=== PATIENT | female | born 1995 | race African-American/Black ===

== ENCOUNTER 2016-10-26 18:52 | Emergency (ER) | payer MEDICAID ==
[~2016-10-26] VITALS: Ht 162.6 cm; Wt 55.8 kg
[~2016-10-26 18:52] MED LIST: DIPH25TA26 PO; IBUP800T24 PO; NOR10T PO; TRAM50TA2 PO
[2016-10-26 19:18] LABS: Urine RBC None Seen /hpf (0 - 4)
[2016-10-26 19:23] VITALS: BP 112/70
[2016-10-26 19:31] LABS: Urine Bilirubin Negative (Negative); Urine Blood Negative /uL (Negative); Urine Color Colorless (Yellow); Urine Glucose Normal (Normal); Urine Ketone Negative (Negative); Urine Nitrite Negative (Negative); Urine Squamous Epithelial Cell FEW /hpf (<5); Urine Urobilinogen Normal (Negative)
[2016-10-26] MEDS ORDERED: cefTRIAXone SOD 1,000 MG VL IM ONE (19:45)
[2016-10-26] MEDS ORDERED: KETOROLAC TROMETH 60MG/2ML VIAL IM ONE (19:45)
== END 2016-10-26 20:01 | disposition home or self-care (01) ==
LOC: ER 19:05
DX: J02.9 Acute pharyngitis, unspecified (principal); F17.210 Nicotine dependence, cigarettes, uncomplicated; Z79.899 Other long term (current) drug therapy; Z87.442 Personal history of urinary calculi
CPT/HCPCS: 81001; 81025; 96372; 99284; J0696; J1885

== ENCOUNTER 2017-11-29 15:29 | Emergency (ER) | payer MEDICAID ==
[~2017-11-29] VITALS: Ht 162.6 cm; Wt 56.7 kg
[2017-11-29] MEDS ORDERED: LIDOCAINE 1% HCL (LOCAL ANESTH.) INJ 20ML MDV ID ONE (16:00)
[2017-11-29] MEDS ORDERED: HYDROcodone-ACET 10/325MG TAB PO ONE (16:00)
[2017-11-29] MEDS ORDERED: BACITRACIN TOP OINT 1 UD PKG TOP ONE (16:00)
[2017-11-29] MEDS ORDERED: IOHEXOL 300 MG/ML 100ML BOTTLE IJ ONE (16:08)
[2017-11-29 16:58] VITALS: BP 117/85
[2017-11-29] MEDS ORDERED: KETOROLAC TROMETH 30 MG/ML 1ML VIAL IV ONE (17:30)
== END 2017-11-29 17:57 | disposition home or self-care (01) ==
LOC: ER 15:29 → EDBD 15:29 → ER 17:57
DX: S01.81XA Laceration without foreign body of other part of head, initial encounter (principal); F17.210 Nicotine dependence, cigarettes, uncomplicated; F12.10 Cannabis abuse, uncomplicated; Z88.5 Allergy status to narcotic agent; Z79.1 Long term (current) use of non-steroidal anti-inflammatories (NSAID); Z79.891 Long term (current) use of opiate analgesic; Z79.899 Other long term (current) drug therapy; V43.52XA Car driver injured in collision with other type car in traffic accident, initial encounter; Y92.410 Unspecified street and highway as the place of occurrence of the external cause; Y93.89 Activity, other specified; Y99.8 Other external cause status
CPT/HCPCS: 12013; 70450; 72125; 74177; 96374; 99284; J1885; J7030; Q9967

== ENCOUNTER 2018-01-24 13:21 | Emergency (ER) | payer MEDICAID ==
[~2018-01-24] VITALS: Ht 162.6 cm; Wt 56.2 kg
[2018-01-24 14:00] LABS: Basophils # (auto) 0 uL; Basophils % (auto) 0.5 % (0.0-2.0); Eosinophils # (auto) 0 uL; Eosinophils % (auto) 0.4 % (0.0-7.0); Hemoglobin 12.5 g/dL (12.2-16.2); Lymphocytes # (auto) 1.4 uL; Lymphocytes % (auto) 28.7 % (10.0-50.0); Mean Corpuscular Hemoglobin 32.9 pg (28.0-32.0); Mean Corpuscular Hgb Conc. 33.9 g/dL (32.0-36.0); Mean Corpuscular Volume 97.1 fL (80.0-100.0); Monocytes # (auto) 0.4 uL; Monocytes % (auto) 7.3 % (0.0-12.0); Neutrophils # (auto) 3.1 uL; Neutrophils % (auto) 63.1 % (37.0-80.0); Nucleated Red Blood Cells % 0.1 %; Platelet Count (auto) 255 10^3/uL (140-450); Red Blood Cells 3.81 10^6/uL (4.0-5.20); Red Cell Distribution Width 14.1 % (11.8-14.3); White Blood Cell 4.9 10^3/uL (4.4-10.8)
[2018-01-24 14:18] LABS: Albumin 3.6 g/dL (3.4-5.0); BUN/Creatinine Ratio 8.4; Calcium 8.6 mg/dL (8.5-10.1); Potassium 3.9 mmol/L (3.5-5.1)
[2018-01-24 14:19] LABS: Urine Bacteria FEW /hpf (None Seen); Urine Blood Negative /uL (Negative); Urine Mucus FEW (None Seen); Urine Specific Gravity 1.024 (1.001-1.035); Urine WBC 3 /hpf (0 - 5)
[2018-01-24 14:20] LABS: Bilirubin, Total 0.5 mg/dL (0.2-1.0); Total Protein 6.9 g/dL (6.4-8.2)
[2018-01-24] MEDS ORDERED: cloNIDine HCL 0.1 MG TAB PO ONE (17:45)
[2018-01-24 18:10] VITALS: BP 114/81
== END 2018-01-24 18:54 | disposition left against medical advice (07) ==
LOC: ER 13:21
DX: R10.84 Generalized abdominal pain (principal); F17.210 Nicotine dependence, cigarettes, uncomplicated; Z87.442 Personal history of urinary calculi
CPT/HCPCS: 36415; 80053; 81001; 81025; 82150; 83690; 85025

== ENCOUNTER 2020-03-03 12:15 | Emergency (ER) | payer MEDICAID ==
[~2020-03-03] VITALS: Ht 162.6 cm; Wt 54.4 kg
[2020-03-03 15:25] LABS: Urine Amorphous Crystal FEW /hpf (None Seen); Urine Bacteria NONE SEEN /hpf (None Seen); Urine Blood Negative /uL (Negative); Urine Mucus FEW (None Seen); Urine WBC 1 /hpf (0 - 5)
[2020-03-03] MEDS ORDERED: KETOROLAC TROMETH 60MG/2ML VIAL IM ONE (16:30)
[2020-03-03 18:00] VITALS: BP 120/74
== END 2020-03-03 18:10 | disposition home or self-care (01) ==
LOC: ER 12:15
DX: N83.202 Unspecified ovarian cyst, left side (principal); M25.572 Pain in left ankle and joints of left foot; F17.210 Nicotine dependence, cigarettes, uncomplicated; Z88.8 Allergy status to other drugs, medicaments and biological substances
CPT/HCPCS: 73610; 76830; 76856; 81001; 81025; 96372; 99285; J1885

== ENCOUNTER 2024-03-12 02:41 | Emergency (ER) | payer MEDICAID ==
[~2024-03-12] VITALS: Ht 162.6 cm; Wt 52.7 kg
[~2024-03-12 02:41] MED LIST changes: +IBUP-1456 PO; -IBUP800T24 PO
[2024-03-12 05:18] LABS: Basophils # (auto) 0 10 ^3/uL (0-0.2); Basophils % (auto) 0.4 % (0.0-2.0); Eosinophils # (auto) 0 10 ^3/uL (0-0.8); Eosinophils % (auto) 0.8 % (0.0-7.0); Hematocrit 37.6 % (36.0-46.0); Hemoglobin 12.7 g/dL (12.2-16.2); Lymphocytes # (auto) 1.9 10 ^3/uL (0.4-5.4); Lymphocytes % (auto) 41.3 % (10.0-50.0); Mean Corpuscular Hemoglobin 32.8 pg (28.0-32.0); Mean Corpuscular Hgb Conc. 33.6 g/dL (32.0-36.0); Mean Corpuscular Volume 97.5 fL (80.0-100.0); Monocytes # (auto) 0.4 10 ^3/uL (0-1.3); Monocytes % (auto) 8.1 % (0.0-12.0); Neutrophils # (auto) 2.2 10 ^3/uL (1.6-8.6); Neutrophils % (auto) 49.4 % (37.0-80.0); Red Blood Cells 3.86 10^6/uL (4.0-5.20); Red Cell Distribution Width 13.5 % (11.8-14.3); White Blood Cell 4.5 10^3/uL (4.4-10.8)
[2024-03-12 05:32] LABS: Alanine Aminotransferase 13 U/L (7-40); Albumin 4.2 g/dL (3.2-4.8); Alkaline Phosphatase 61 U/L (46-116); Anion Gap 3 (5-15); Aspartate Aminotransferase 18 U/L (13-40); BUN/Creatinine Ratio 11.3 (10.0-20.0); Blood Urea Nitrogen 9 mg/dL (9-23); Calcium 9.2 mg/dL (8.7-10.4); Carbon Dioxide 25 mmol/L (20-30); Chloride 109 mmol/L (98-107); Glucose 96 mg/dL (74-106); Potassium 3.4 mmol/L (3.5-5.1); Sodium 137 mmol/L (136-145)
[2024-03-12 05:33] LABS: Bilirubin, Total 0.7 mg/dL (0.2-1.0); Total Protein 6.3 g/dL (5.7-8.2)
[2024-03-12] MEDS ORDERED: NAPR125S6 PO (05:50)
[2024-03-12] MEDS ORDERED: PANT40TA2 PO (05:50)
[2024-03-12] MEDS: KETOROLAC TROMETH 60MG/2ML VIAL IM ONE (06:20)
[2024-03-12 06:23] VITALS: BP 115/65; PULSE 84; RESP 16; TEMP 98.2; O2SAT 99
== END 2024-03-12 06:22 | disposition home or self-care (01) ==
LOC: ER 02:41
DX: R68.89 Other general symptoms and signs (principal); F41.9 Anxiety disorder, unspecified; F17.210 Nicotine dependence, cigarettes, uncomplicated; F15.90 Other stimulant use, unspecified, uncomplicated; Z86.2 Personal history of diseases of the blood and blood-forming organs and certain disorders involving the immune mechanism; Z87.442 Personal history of urinary calculi; Z98.890 Other specified postprocedural states; Z88.8 Allergy status to other drugs, medicaments and biological substances; Z79.899 Other long term (current) drug therapy
CPT/HCPCS: 36415; 74176; 80053; 83690; 85025; 96372; 99285; J1885

== ENCOUNTER 2025-04-04 21:57 | Emergency (ER) | payer MEDICAID ==
[~2025-04-04] VITALS: Ht 162.6 cm; Wt 56.9 kg
[~2025-04-04 21:57] MED LIST changes: +NAPR125S6 PO; +PANT40TA2 PO
[2025-04-04 22:26] LABS: Hematocrit 36.0 % (36.0-46.0); Hemoglobin 12.2 g/dL (12.2-16.2); Mean Corpuscular Hemoglobin 33.3 pg (28.0-32.0); Mean Corpuscular Volume 98.2 fL (80.0-100.0); Nucleated Red Blood Cells % 0.1 %
--- NOTE | 2025-04-04 22:26 | ED.PDOC ---
HPI Comments 30y F who presents to the ED for chief complaint of chest pain. Pt states she has been having chest pain for the past 3x days. Pt states the pain is substernal, radiating to the L ribs, constant, pressure and sharp in nature, with associated exacerbation of pain with any movement and no relieving factors. Pt in the ED, has associated shortness of breath but otherwise denies any other symptoms. Pt otherwise denies any other symptoms at this time. Pt denies any past cardiac history or family history. Chief Complaint: Chest Pain Time Seen by MD: 22:17 Primary Care Provider: DR COLLAZO Reviewed Notes: Nurses Notes, Medications, Allergies Allergies: Coded Allergies: Tramadol (Verified Allergy, Unknown, 11/29/17) Home Meds Active Scripts Naproxen (Naprosyn) 125 Mg/5 Ml Sabrina, 500 MG PO BID for 10 Days, #20 ML Prov:SEBASTIEN NGUYEN MD 03/12/24 Pantoprazole Sodium Sesquihydr (Protonix) 40 Mg Tab, 40 MG PO DAILY PRN for 30 Days, #30 TAB Prov:SEBASTIEN NGUYEN MD 03/12/24 Reported Medications Diphenhydramine Hcl (Benadryl) 25 Mg Tab, 50 MG PO PRN, TAB 01/28/14 Ibuprofen (Ibuprofen) 800 Mg Tab, 800 MG PO Q8HP PRN for SEVERE PAIN, TAB 01/28/14 Tramadol Hcl (Tramadol Hcl) 50 Mg Tab, 50 MG PO PRN, TAB 01/28/14 Hydrocodone-Acetaminophen ([place] 10/325MG) 1 Tab Tb, 1 TAB PO PRN 01/28/14 Information Source: Patient Mode of Arrival: Ambulatory Severity: Moderate Timing: Days Duration: Since onset Prehospital treatment: None Location: Chest (L), Substernal Radiation: No Radiation Quality: Sharp, Squeezing Onset: At Rest Cardiac Risk Factors: None PE Risk Factors: None History of: None Past Medical History PAST MEDICAL HISTORY: Anemia, Anxiety, Kidney Stones 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 History Family History Family History: No family hx of Heart jac, No family hx of HTN, No family hx ofKidney jac Social History Smoker: Cigarettes, Less Than 1 Pack/Day Alcohol: Denies ETOH Use Drugs: Marijuana Lives In: Home Constitutional: denies: chills, diaphoresis, fatigue, fever, malaise, sweats, weakness, others EENTM: denies: blurred vision, double vision, ear bleeding, ear discharge, ear drainage, ear pain, ear ringing, eye pain, eye redness, hearing loss, mouth pain, mouth swelling, nasal discharge, nose bleeding, nose congestion, nose pain, photophobia, tearing, throat pain, throat swelling, voice changes, others Respiratory: reports: shortness of breath; denies: cough, hemoptysis, orthopnea, SOB at rest, SOB with excertion, stridor, wheezing, others Cardiovascular: reports: chest pain; denies: dizzy spells, diaphoresis, Dyspnea on exertion, edema, irregular heart beat, left arm pain, lightheadedness, palpitations, PND, syncope, others Gastrointestinal: denies: abdomen distended, abdominal pain, blood streaked bowels, constipated, diarrhea, dysphagia, difficulty swallowing, hematemesis, melena, nausea, poor appetite, poor fluid intake, rectal bleeding, rectal pain, vomiting, others Genitourinary: denies: abnormal vagina bleeding, burning, dyspareunia, dysuria, flank pain, frequency, hematuria, incontinence, pain, , vagina discharge, urgency, others Neurological: denies: dizziness, fainting, headache, left sided numbness, left sided weakness, numbness, paresthesia, pre-existing deficit, right sided numbness, right sided weakness, seizure, speech problems, tingling, tremors, weakness, others Musculoskeletal: denies: back pain, gout, joint pain, joint swelling, muscle pain, muscle stiffness, neck pain, others Integumetry: denies: bruises, change in color, change in hair/nails, dryness, laceration, lesions, lumps, rash, wounds, others Allergic/Immunocompromised: denies: Difficulty Healing, Frequent Infections, Hives, Itching, others Hematologic/Lymphatic: denies: anemia, blood clots, easy bleeding, easy bruising, swollen glands, others Endocrine: denies: excessive hunger, excessive sweating, excessive thirst, excessive urination, flushing, intolerance to cold, intolerance to heat, unexplained weight gain, unexplained weight loss, others Psychiatric: denies: anxiety, bipolar disorder, depression, hopeless, panic disorder, schizophrenia, sleepless, suicidal, others All Other Systems: Reviewed and Negative Physical Exam General Appearance: Moderate Distress ([id number] distress due to chest pain concerns.), Normal HEENT: Normal ENT Inspection, Pharynx Normal, TMs Normal Neck: Full Range of Motion, Non-Tender, Normal, Normal Inspection Respiratory: Chest Non-Tender, Lungs Clear, No Accessory Muscle Use, No Respiratory Distress, Normal Breath Sounds, Other (Unremarkable auscultation bilateral lung albarran.) Cardiovascular: No Edema, No JVD, No Murmur, No Gallop, Normal Peripheral Pulses, Regular Rate/Rhythm, Other (Unremarkable cardiac evaluation.) Breast Exam: Deferred Gastrointestinal: No Organomegaly, Non Tender, No Pulsatile Mass, Normal Bowel Sounds, Soft Genitalia: Deferred Pelvic: Deferred Rectal: Deferred Extremities: No calf tenderness, Normal capillary refill, Normal inspection, Normal range of motion, Non-tender, No pedal edema Musculoskeletal : Apperance: Normal Neurologic: Alert, No Motor Deficits, Normal Affect, Normal Mood, No Sensory Deficits Cerebellar Function: Normal Reflexes: Normal Skin: Dry, Normal Color, Warm Lymphatic: No Adenopathy Was a procedure done? Was a procedure done?: No CP Differential Dx Differential Diagnosis: A-fib, A-Flutter, Angina, Anxiety / Panic Attack Differential Diagnosis: Angina, Aortic dissection, Pneumonia X-Ray, Labs, Meds, VS Vital Signs Date Time Temp Pulse Resp B/P (MAP) Pulse Ox O2 Delivery O2 Flow Rate FiO2 04/04/25 22:32 98.0 89 18 114/82 (93) 100 98.0 04/04/25 22:04 80 Lab Test 04/04/25 23:50 04/04/25 23:48 04/04/25 22:02 Range/Units Urine Color Light-yellow Yellow Urine Clarity Clear Clear Urine pH 7.5 5.0-9.0 Urine Specific [place] 1.018 1.001-1.035 Urine Protein Negative Negative Urine Ketones Negative Negative Urine Blood 3+ H Negative /uL Urine Nitrite Negative Negative Urine Bilirubin Negative Negative Urine Urobilinogen Normal Negative mg/dL Urine Leukocyte Esterase Negative Negative /uL Urine RBC 1 0 - 4 /hpf Urine Microscopic WBC 1 0-5 /HPF Urine Squamous Epithelial Cells Few <5 /hpf Urine Bacteria None seen None Seen /hpf Urine Glucose Normal Normal mg/dL Troponin I High Sensitivity < 3 L < 3 L </=34 ng/L White Blood Count 4.5 4.4-10.8 10^3/uL Red Blood Count 3.67 L 4.0-5.20 10^6/uL Hemoglobin 12.2 12.2-16.2 g/dL Hematocrit 36.0 36.0-46.0 % Mean Corpuscular Volume 98.2 80.0-100.0 fL Mean Corpuscular Hemoglobin 33.3 H 28.0-32.0 pg Mean Corpuscular Hemoglobin Concent 33.9 32.0-36.0 g/dL Red Cell Distribution Width 13.2 11.8-14.3 % Platelet Count 300 140-450 10^3/uL Mean Platelet Volume 8.1 6.9-10.8 fL Neutrophils (%) (Auto) 46.1 37.0-80.0 % Lymphocytes (%) (Auto) 46.0 10.0-50.0 % Monocytes (%) (Auto) 6.4 0.0-12.0 % Eosinophils (%) (Auto) 0.8 0.0-7.0 % Basophils (%) (Auto) 0.7 0.0-2.0 % Neutrophils # (Auto) 2.1 1.6-8.6 10 ^3/uL Lymphocytes # (Auto) 2.1 0.4-5.4 10 ^3/uL Monocytes # (Auto) 0.3 0-1.3 10 ^3/uL Eosinophils # (Auto) 0 0-0.8 10 ^3/uL Basophils # (Auto) 0 0-0.2 10 ^3/uL Nucleated Red Blood Cells 0.1 % D-Dimer, Quantitative 0.49 0.0-0.49 mg/L FEU B-Type Natriuretic Peptide 46.68 0-100 pg/mL X-Ray, Labs, Meds, VS Comment All studies performed the ED were evaluated by me personally. Serum and urinalysis was unremarkable for any acute systemic concerns including unremarkable cardiac markers. EKG revealed a sinus rhythm with a rate of 80. Ventricular premature complex was noted. [place] interval of 150 and QT interval 405. Relatively unremarkable EKG. Chest x-ray was unremarkable for any consolidation or intrapulmonary concerns. Unknown as to cause the patient's chest pain events. Advised patient to follow up with the primary care provider if symptoms continue for continued evaluation as possible cardiac referral. Time of 1ST Reevaluation: Reevaluation 1ST: Improved Consultation: PCP, Cardiology Patient Education/Counseling: Diagnosis, Treatment Family Education/Counseling: Diagnosis, Treatment, No Family Present SEPSIS Sepsis Screen Recent Procedure: No On Antibiotic Therapy: No Respiratory Rate >20: No Heart Rate >90: No Temp<36 C (96.8 F) or >38.3 C: No SBP <90 or MAP <65 mmHG: No New Acute Mental Status Change: No Is the patient on CPAP, BIPAP,: No Physician Orders Electrocardigram (04/04/25 21:58) Electrocardigram (04/04/25 22:58) Electrocardigram (04/05/25 00:58) Troponin-I Hs (04/05/25 00:58) Chest Portable (04/04/25 22:12) Vital Signs Date Time Temp Pulse Resp B/P (MAP) Pulse Ox O2 Delivery O2 Flow Rate FiO2 04/04/25 22:32 98.0 89 18 114/82 (93) 100 98.0 04/04/25 22:04 80 Laboratory Tests Test 04/04/25 22:02 White Blood Count 4.5 10^3/uL (4.4-10.8) Departure 1 Departure Time of Disposition: Impression: Primary Impression: Chest pain Disposition: HOME / SELF CARE / HOMELESS Condition: Stable Additional Instructions: Advised patient utilize medication as needed. If symptoms continue, patient will need to follow up with the primary care provider for evaluation and possible cardiac referral. e-Prescriptions Ibuprofen Micronized (Ibuprofen) 800 Mg Tab 800 MG PO Q8HP PRN, #20 TAB Prov: REENA PARKINSON PAC 04/05/25 Discharged With: Self, Friend Critical Care Note Critical Care Time?: No Stability Stability form required: No Heart Score Heart Score: Heart Score Response (Comments) Value History Slightly Suspicious 0 EKG Repolarization Disturb 1 Age <45 0 Risk Factors No known risk factors 0 Troponin Normal limit 0 Total 1 I personally scribed for REENA PARKINSON PAC ([email or web address]) on 04/04/25 at 22:26. Electronically submitted by Ana STANFORD). REENA PARKINSON PAC Apr 04, 2025 22:26
--- NOTE | 2025-04-04 22:49 | DVH ---
CHEST RADIOGRAPH Indication: Chest pain Technique: Single frontal view of the chest was obtained COMPARISON: None FINDINGS: Lines and Tubes: None Lungs: Clear Pleura: No effusion. No pneumothorax. Cardiomediastinal contours: Unremarkable Bones: Unremarkable IMPRESSION: 1. No acute disease.
[2025-04-05 00:31] LABS: Urine Protein, UAD Negative (Negative)
[2025-04-05] MEDS: HYDROcodone-ACET 5/325MG TAB PO ONE (01:25)
[2025-04-05] MEDS: KETOROLAC TROMETH 60MG/2ML VIAL IM ONE (01:26)
[2025-04-05] MEDS ORDERED: IBUP-1455 PO (01:28)
[2025-04-05 01:30] VITALS: BP 136/93; PULSE 75; RESP 17; TEMP 98.4; O2SAT 100
--- NOTE | 2025-04-08 06:28 | ECG ---
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
== END 2025-04-05 02:25 | disposition home or self-care (01) ==
LOC: ER 21:57
DX: R07.2 Precordial pain (principal); F12.90 Cannabis use, unspecified, uncomplicated; F17.210 Nicotine dependence, cigarettes, uncomplicated; F41.9 Anxiety disorder, unspecified; Z87.442 Personal history of urinary calculi; Z86.2 Personal history of diseases of the blood and blood-forming organs and certain disorders involving the immune mechanism; Z79.899 Other long term (current) drug therapy; Z98.890 Other specified postprocedural states
CPT/HCPCS: 36415; 71045; 81001; 83880; 84484; 85025; 85379; 93005; 96372; 99285; J1885